=== PATIENT | female | born 2000 | race Caucasian/White ===

== ENCOUNTER 2021-05-27 17:59 | Emergency (ER) | payer OTHER | END 2021-05-27 19:17 | disposition left against medical advice (07) | LOC: ER 17:59 | DX: S61.011A Laceration without foreign body of right thumb without damage to nail, initial encounter (principal); Z53.21 Procedure and treatment not carried out due to patient leaving prior to being seen by health care provider; X58.XXXA Exposure to other specified factors, initial encounter; Y93.89 Activity, other specified; Y92.89 Other specified places as the place of occurrence of the external cause; Y99.8 Other external cause status | CPT/HCPCS: 99283-25 ==

== ENCOUNTER → 2021-06-16 | Outpatient (CLI) | payer OTHER ==
--- NOTE | 2021-06-16 09:39 | RAD ---
EXAM: Right thumb, 3 views. HISTORY: Fracture. COMPARISON: None. FINDINGS: 3 views of the right thumb are obtained. There is a small defect or deformity of the tuft o f the right distal phalanx, best seen on the oblique projection and possibly due to a tiny avulsion f racture defect. There is no overlying soft tissue laceration and hyperdensity along the skin surface likely due to medication. This limits evaluation for a foreign body. IMPRESSION: Tiny defect within the tuft of the first distal phalanx, possibly due to an avulsion frac ture of uncertain chronicity. This is best seen on the oblique projection. There is no overlying soft tissue laceration. Electronically signed by: Viri Ridley MD (06/16/2021 9:36 AM) [id number]
== END ==
LOC: RAD 09:05
PROVIDERS: ATTEND Emergency Medicine Undersea and Hyperbaric Medicine
DX: S62.502A Fracture of unspecified phalanx of left thumb, initial encounter for closed fracture (principal); X58.XXXA Exposure to other specified factors, initial encounter; Y93.89 Activity, other specified; Y92.89 Other specified places as the place of occurrence of the external cause; Y99.8 Other external cause status
CPT/HCPCS: 73140